=== PATIENT | male | born 1995 | race Caucasian/White ===

== ENCOUNTER 2016-10-25 14:07 | Emergency (ER) | payer OTHER ==
[~2016-10-25] VITALS: Ht 172.7 cm; Wt 75.0 kg
[2016-10-25] MEDS ORDERED: SODIUM CHLORIDE 0.9% 1,000 ML IV ONE (16:39)
[2016-10-25] MEDS ORDERED: MORPHINE SULFATE 4 MG/ML CPJ (NOT FOR IM USE) IV ONE (16:45)
[2016-10-25] MEDS ORDERED: METOCLOPRAMIDE HCL 10MG/2ML VIAL IV ONE (16:45)
[2016-10-25] MEDS ORDERED: ONDANSETRON HCL 4MG/2ML VIAL IV ONE (16:45)
[2016-10-25 17:26] VITALS: BP 98/72
== END 2016-10-25 18:27 | disposition home or self-care (01) ==
LOC: ER 16:53
DX: R51 Headache (principal)
CPT/HCPCS: 96361; 96374; 96375; 99284; J2270; J2405; J2765; J7030; Z7610

== ENCOUNTER 2020-01-16 18:05 | Emergency (ER) | payer OTHER ==
[~2020-01-16] VITALS: Ht 167.6 cm; Wt 67.0 kg
[2020-01-16] MEDS ORDERED: MAGNESIUM/ALUMINUM HYDROXIDE/SIMETHICONE 30ML UDC PO ONE (20:15)
[2020-01-16] MEDS ORDERED: ASPIRIN 81MG TABLET PO ONE (20:15)
[2020-01-16] MEDS ORDERED: VISCOUS LIDOCAINE 2% 15 ML UDC PO ONE (20:15)
[2020-01-16] MEDS ORDERED: SODIUM CHLORIDE 0.9% 1,000 ML IV ONE (20:30)
[2020-01-16 21:46] LABS: CHLORIDE 98 mEq/L (98-107)
[2020-01-17 00:52] VITALS: BP 110/66
== END 2020-01-17 00:55 | disposition home or self-care (01) ==
LOC: ER 18:05
DX: F15.10 Other stimulant abuse, uncomplicated (principal); R00.0 Tachycardia, unspecified; I10 Essential (primary) hypertension; F12.10 Cannabis abuse, uncomplicated; Z98.890 Other specified postprocedural states
CPT/HCPCS: 36415; 71045; 80053; 84484; 93005; 96360; 96361; 99285; J7030

== ENCOUNTER 2021-10-10 04:01 | Emergency (ER) | payer OTHER ==
[~2021-10-10] VITALS: Ht 162.6 cm; Wt 85.9 kg
[2021-10-10 04:30] VITALS: BP 119/81
[2021-10-10] MEDS ORDERED: AMOXICILLIN/POTASSIUM CLAVULANATE 875/125MG TAB PO ONE (05:45)
[2021-10-10] MEDS ORDERED: LIDOCAINE HCL 1% 20ML VIAL (Pyxis) INJ INFIL ONE (05:45)
[2021-10-10] MEDS ORDERED: ACETAMINOPHEN 325MG TABLET PO ONE (05:45)
[2021-10-10] MEDS ORDERED: TETANUS, DIPHTHERIA, PERTUSSIS VAC/PF 0.5ML (>10YR OLD) IM ONE (05:45)
[2021-10-10] MEDS ORDERED: AMOX1TAB16 MT (07:16)
== END 2021-10-10 07:28 | disposition home or self-care (01) ==
LOC: ER 04:01
DX: S01.25XA Open bite of nose, initial encounter (principal); F15.10 Other stimulant abuse, uncomplicated; F12.10 Cannabis abuse, uncomplicated; W54.0XXA Bitten by dog, initial encounter; Y93.89 Activity, other specified; Y92.89 Other specified places as the place of occurrence of the external cause
CPT/HCPCS: 12011; 90471; 90715; 99283; J3490